=== PATIENT | female | born 1980 | race Caucasian/White ===

== ENCOUNTER 2016-07-23 09:00 | Inpatient (IN) ==
[2016-08-09] MEDS ORDERED: CALCIUM CARBONATE Chewable 500mg TABLET PO PRN ×2 (05:16→14:10)
[2016-08-09] MEDS ORDERED: LIDOCAINE 1% (10mg/ml) 2mL INJ PF SDV ID PRN (05:16)
[2016-08-09] MEDS ORDERED: MAG-AL + SIM ORAL LIQUID 30ml PO PRN ×2 (05:16→14:10)
[2016-08-09] MEDS ORDERED: ACETAMINOPHEN 500 MG TABLET PO PRN ×2 (05:16→14:10)
[2016-08-09] MEDS ORDERED: CARBOPROST 250 MCG/ML INJECTION IM PRN (05:16)
[2016-08-09] MEDS ORDERED: METHYLERGONOVINE 0.2 MG/ML INJECTION IM PRN (05:16)
[2016-08-09] MEDS ORDERED: D5LR 1,000 ML IV PRN (05:16)
[2016-08-09] MEDS ORDERED: AMPICILLIN 1 GM in NS 100 ML IV SCH (05:30)
[2016-08-09] MEDS ORDERED: AMPICILLIN 2 GM in NS 100 ML IV ONE (06:00)
[2016-08-09] MEDS ORDERED: OXYTOCIN DRIP 30 UNIT/500 ML ML IV PRN (06:00)
[2016-08-09] MEDS: LR 1,000 ML IV PRN ×2 (06:07→11:24)
--- NOTE | 2016-08-09 12:28 | Anesthesia Preoperative Report ---
Anesthesia Epidural/Spinal Rec - Date and Time Date: 08/09/16 Procedure: Labor Epidural Plan: Epidural - Vital Signs Vital Signs: Temp Pulse Resp BP Pulse Ox 97.7 F 71 16 111/61 99 08/09/16 05:37 08/09/16 05:37 08/09/16 05:37 08/09/16 05:37 08/09/16 05:37 NPO since: 399 /Para: P:2 Heart Rate: 136 - Medictaions & Allergies Inpatient Medications: Current Medications Acetaminophen (Tylenol) 500 - 1,000 mg PO Q4H PRN PRN Reason: Pain Al Hydroxide/Mg Hydroxide (Maalox Plus) 30 ml PO Q3H PRN PRN Reason: Indigestion Calcium Carbonate (Tums) 500 - 1,000 mg PO Q2H PRN PRN Reason: Indigestion Carboprost Tromethamine (Hemabate) 250 mcg IM O PRN PRN Reason: .Downtime Ampicillin Sodium 1 gm/ Sodium (Chloride) 100 mls @ 200 mls/hr IV Q4H JOJO Last Infusion: 08/09/16 10:49 Dose: Infused Dextrose/Lactated Ringer's (Dextrose 5%-Lactated Ringers) 1,000 mls @ 125 mls/ hr IV .Q8H PRN PRN Reason: Labor Last Admin: 08/09/16 06:08 Dose: 125 mls/hr Lactated Ringer's (Lactated Ringers) 1,000 mls @ 1,000 mls/hr IV .Q1H PRN PRN Reason: as directed Last Admin: 08/09/16 11:24 Dose: 1,000 mls/hr Oxytocin (Pitocin Drip) 30 unit in 500 mls @ 2 mls/hr IV .Q24H PRN; Protocol PRN Reason: Induction/Augmentation Last Admin: 08/09/16 06:08 Dose: 2 mls/hr Lidocaine HCl (Xylocaine-Mpf 1% Vial) 0.2 mg ID O PRN PRN Reason: IV Start Methylergonovine Maleate (Methergine) 0.2 mg IM O PRN Misoprostol (Cytotec) 800 mcg ND ONCE PRN Allergies/Adverse Reactions: Allergies Allergy/AdvReac Type Severity Reaction Status Date / Time promethazine Allergy Mild RASH Verified 07/23/16 13:00 erythromycin base AdvReac Intermediate STOMACH Verified 07/23/16 13:00 PAIN - Home Medications Home Medications: Home Medications Medication Instructions Recorded Confirmed Type Vits W-Ca,Fe,Fa(<1MG) 1 tab PO #0 05/09/08 History ( Vitamins) Nadolol 10 mg PO DAILY #0.5 07/24/10 08/09/16 History - Medical History Respiratory: DENIES: Asthma Cardiovascular: Reports: Heart Murmur (mitral valve prolapse, palpatations and fast HR controlled by Nadolol) DENIES: Hypertension Gastrointestional: DENIES: Gastroesophageal Reflux Disease Renal/Endocrine: DENIES: Diabetes Mellitus Type 2 Other History: Reports: Now DENIES: Anesthesia Reactions - Surgical History Anesthesia Reactions: None Hx Family Anesthesia Reaction: No History of Motion Sickness: No - Social History Smoking Status: Never smoker Second Hand Exposure: No Substance Use Type: does not use Alcohol Intake Frequency: does not drink Hx Chewing Tobacco Use: No - Pertinent Findings Lab Data: CBC and BMP 08/09/16 05:55 - Physical Exam Respiratory Exam: lungs clear Cardiovascular Exam: regular rate and rhythm - Airway Assessment Mallampati Score: II TMD: 2 Fingerbreadths Neck Extension: good Overall Assessment: may be difficult mask vent, may be difficult intubation - ASA ASA Score: 2 - Discussion Discussion: Discussed risks/options/alternatives of anesthesia and questions answered. Patient consents. Nursing pain assessment noted. Anesthesia Discussion: spouse Attestation Statement: Prior to the delivery of any anesthetic medication, I examined the patient, developed the plan, obtained the patient's consent and discussed the risk and benefits of the procedure with the patient/guardian.
[2016-08-09] MEDS ORDERED: ROPIVACAINE 1% 10MG/ML INJ 200 MG, SUFentanil 50 MCG in NS 100 ML EPI PRN (12:31)
[2016-08-09] MEDS ORDERED: ONDANSETRON 4 MG/2 ML INJECTION IVP PRN (12:31)
[2016-08-09] MEDS ORDERED: NALOXONE 0.4 MG/ML INJECTION IVP PRN (12:31)
[2016-08-09] MEDS ORDERED: DiphenhydrAMINE 50 MG/ML INJECTION IVP PRN (12:31)
[2016-08-09] MEDS ORDERED: HYDROCODONE/APAP 5mg/325mg TABLET PO PRN (14:10)
[2016-08-09] MEDS ORDERED: HYDROCORTISONE 2.5% CREAM 30gm RECTALLY PRN (14:10)
[2016-08-09] MEDS ORDERED: DiphenhydrAMINE 25 MG CAPSULE PO PRN (14:10)
[2016-08-09] MEDS ORDERED: SALINE FLUSH 10ml SYRINGE IVF PRN (14:10)
[2016-08-09] MEDS ORDERED: PHENYLEPHRINE RECTAL SUPPOSITORY PR PRN (14:10)
[2016-08-09] MEDS ORDERED: BENZOCAINE 20% SPRAY 0.5 ML MM ONE (14:10)
[2016-08-09] MEDS ORDERED: OXYTOCIN DRIP 30 UNIT/500 ML ML IV SCH (14:10)
[2016-08-09] MEDS: NADOLOL 20 MG TABLET PO SCH (20:39)
[2016-08-09] MEDS: IBUPROFEN 800 MG TABLET PO PRN (20:39)
[2016-08-10] MEDS: IBUPROFEN 800 MG TABLET PO PRN ×2 (05:13→22:40)
--- NOTE | 2016-08-10 08:15 | OB/GYN Progress Note ---
OB-PP Progress Note - General PPD1 Maternal Group B Strep: Positive - Subjective Date: 08/10/16 Lochia: Minimal Pain: contolled Voiding: voiding Nausea or Vomiting Present: No - Objective Vital Signs: Last Vital Signs Temp 97.6 F 08/10/16 05:15 Pulse 67 08/10/16 05:15 Resp 16 08/10/16 05:15 BP 99/56 08/10/16 05:15 Pulse Ox 96 08/10/16 05:15 General: alert and oriented Abdomen: fundus firm, non-tender - Assessment Assessment: SP, - Plan Plan: routine care, continue PNV
[2016-08-10] MEDS: DOCUSATE CALCIUM 240 MG CAPSULE PO SCH (09:17)
--- NOTE | 2016-08-10 11:35 | Anesthesia Postoperative Note ---
- Date and Time Date: 08/10/16 Time: 11:34 - Status Patient Participated in Evaluation: Patient Participated in Person Vital Signs: Temp Pulse Resp BP Pulse Ox 97.6 F 67 16 99/56 96 08/10/16 05:15 08/10/16 05:15 08/10/16 05:15 08/10/16 05:15 08/10/16 05:15 Respiratory Function: Airway Patent Cardiovascular Function: Regular Pulse Mental Status: Alert and Oriented Pain Intensity: 2 (soreness to epidural site) Hydration: Taking PO Fluids Complications During Recover: None Apparent Post Anesthesia Care Notes: full sensation and motor. no complaints/concerns - Follow-Up Instructions Instructions: Per Surgeon
[2016-08-10] MEDS ORDERED: NADOLOL 20 MG TABLET PO SCH (21:00)
[2016-08-10] MEDS: NADOLOL 20 MG TABLET PO SCH (22:39)
--- NOTE | 2016-08-11 07:34 | Discharge Summary ---
Discharge Plan - Med Rec/Dispo Prescriptions: New Docusate Calcium [Surfak] 240 mg PO DAILY #30 cap Ibuprofen [Motrin] 800 mg PO Q8H PRN #30 PRN Reason: Pain Nadolol [Corgard] 10 mg PO DAILY Hydrocodone/APAP 5/325 [[place] 5/325] 1 - 2 tab PO Q4H PRN #20 PRN Reason: Pain No Action Nadolol 10 mg PO DAILY #0.5 Vits W-Ca,Fe,Fa(<1MG) ( Vitamins) 1 tab PO #0
[2016-08-11] MEDS ORDERED: NADOLOL 20 MG TABLET PO SCH (09:00)
[2016-08-11] MEDS: IBUPROFEN 800 MG TABLET PO PRN (11:46)
[2016-08-11] MEDS: DOCUSATE CALCIUM 240 MG CAPSULE PO SCH (11:46)
--- NOTE | 2016-08-12 07:26 | Labor and Delivery Note ---
DELIVERY DATE: 08/09/2016 DIAGNOSES 1. 36-year-old white female, G5, P2, at 39.0 weeks gestational age. 2. Advanced maternal age. 3. Pitocin induction for logistics. 4. GBS prophylaxis. 5. AROM. 6. Epidural. 7. Spontaneous vaginal delivery. 8. Female infant, 9/10 Apgars, 3455 g (7 pounds 10 ounces). 9. First-degree laceration - repaired. BRIEF DESCRIPTION This is a patient of mine who was brought in for induction today for logistics reasons. She is 39 weeks. Pitocin reached a maximum of the mid 20s. Artificial rupture of membranes was clear. She eventually made it to complete dilation and then we had a spontaneous vaginal delivery. was bulb suctioned after delivery of the head and then again after delivery of the body. Cord was allowed to drain for a couple of minutes before it was doubly clamped and cut and the infant's father cut the cord. The patient had a first- degree perineal laceration that was repaired with 3-0 chromic. She received GBS prophylaxis. Maternal blood type is A+ and rubella is immune. MTDD
== END 2016-08-11 13:15 | disposition home or self-care (01) | DRG 774 ==
LOC: MC 08-09 05:22
PROVIDERS: ADMIT Obstetrics & Gynecology; ATTEND Obstetrics & Gynecology